=== PATIENT | female | born 1935 | race Caucasian/White ===

== ENCOUNTER 2020-04-06 17:00 | Inpatient (IN) ==
[2020-04-06] MEDS ORDERED: NS 0.9% 1000 ml BAG 1,000 ML IV ONE (17:20)
[2020-04-06] MEDS ORDERED: Pantoprazole VIAL 40 MG VIAL IV ONE (17:25)
[2020-04-06 17:47] LABS: Hematocrit 35 % (35-47); Hemoglobin 11.6 g/dL (12.0-16.0); Mean Corpuscular HGB Conc 33 g/dL (31-36); Mean Corpuscular Hemoglobin 31 pg (27-31); Mean Corpuscular Volume 93 fL (80-97); Mean Platelet Volume 11.2 fL (7.4-10.4); Platelet Count 131 10^3/uL (150-450); Red Blood Count 3.75 10^6 /uL (3.70-4.87); Red Cell Distribution Width 17 % (10-15); White Blood Count 11.1 10^3/uL (3.5-10.8)
[2020-04-06 17:56] LABS: Activated Partial Thrombo Time 38.1 seconds (26.0-38.0); INR 1.68 (0.82-1.09)
[2020-04-06 18:06] LABS: ALT 48 U/L (7-52); Albumin 3.3 g/dL (3.2-5.2); Albumin/Globulin Ratio 1.2 (1-3); Alkaline Phosphatase 217 U/L (34-104); BUN/Creatinine Ratio 37.8 (8-20); Blood Urea Nitrogen 48 mg/dL (6-24); C Reactive Protein 30.18 mg/L (<8.01); CO2 Carbon Dioxide 18 mmol/L (22-32); Calcium 9.9 mg/dL (8.6-10.3); Chloride 105 mmol/L (101-111); EGFR African American 48.3 (>60); EGFR Non-African American 39.9 (>60); Globulin 2.7 g/dL (2-4); Glucose 148 mg/dL (70-100); Lipase 34 U/L (11.0-82.0); Sodium 133 mmol/L (135-145)
[2020-04-06 18:12] LABS: ABS Lymphocytes 0.5 10^3/ul (1.0-4.8); ABS Neutrophils 9.6 10^3/ul (1.5-7.7); Anion Gap 10 mmol/L (2-11); Eosinophil % 0.1 %; Lymphocyte % 4.4 %; Troponin I 0.09 ng/mL (<0.03)
[2020-04-06] MEDS ORDERED: Pantoprazole 80 mg in NS BAG 80 MG/250 ML BAG IV ONE (18:24)
[2020-04-06 19:47] LABS: Potassium 5.5 mmol/L (3.5-5.0)
[2020-04-06] MEDS ORDERED: Octreotide Acetate 100 mcg/ml 50 MCG in NS 0.9% 50 ML 50 ML IV ONE (20:11)
[2020-04-06 20:41] LABS: Hematocrit 32 % (35-47); Hemoglobin 10.5 g/dL (12.0-16.0)
[2020-04-06] MEDS ORDERED: Octreotide Acetate 50 MCG in NS 0.9% 50 ML 50 ML IV ONE (21:00)
[2020-04-06] MEDS ORDERED: Octreotide Acetate 500 MCG in NS 0.9% 100 ml BAG 100 ML IV ONE (21:00)
[2020-04-06 21:02] LABS: Troponin I 0.09 ng/mL (<0.03)
[2020-04-06] MEDS ORDERED: NS 0.9% 1000 ml BAG 1,000 ML IV SCH (22:15)
[2020-04-07 02:29] LABS: Hematocrit 28 % (35-47); Hemoglobin 9.1 g/dL (12.0-16.0)
[2020-04-07] MEDS: Ondansetron 4 mg VIAL 2 MG/ML 2 ml VIAL IV PRN ×2 (03:58→08:29)
[2020-04-07] MEDS ORDERED: Morphine 2 MG/ML SYRINGE IV PRN (04:52)
[2020-04-07] MEDS ORDERED: Pantoprazole 80 mg in NS BAG 80 MG/250 ML BAG IV SCH (06:00)
[2020-04-07] MEDS ORDERED: Octreotide Acetate 500 MCG in NS 0.9% 100 ml BAG 100 ML IV SCH (06:00)
[2020-04-07 06:10] LABS: BUN/Creatinine Ratio 34.7 (8-20); Calcium 9.1 mg/dL (8.6-10.3); EGFR African American 39.8 (>60); EGFR Non-African American 32.9 (>60)
[2020-04-07 06:15] LABS: Potassium 6.3 mmol/L (3.5-5.0)
[2020-04-07 06:27] LABS: Hematocrit 27 % (35-47); Hemoglobin 8.6 g/dL (12.0-16.0); Mean Corpuscular HGB Conc 33 g/dL (31-36); Mean Corpuscular Hemoglobin 31 pg (27-31); Mean Corpuscular Volume 96 fL (80-97); Red Blood Count 2.77 10^6 /uL (3.70-4.87); Red Cell Distribution Width 17 % (10-15); White Blood Count 15.5 10^3/uL (3.5-10.8)
[2020-04-07] MEDS ORDERED: CALCIUM GLUCONATE 1GM/50ML NS 1 GM/50 ML BAG IV ONE (06:42)
[2020-04-07 08:34] LABS: ABS Lymphocytes 0.9 10^3/ul (1.0-4.8); ABS Monocytes 1.5 10^3/ul (0-0.8); ABS Neutrophils 13.1 10^3/ul (1.5-7.7); Large Platelets Present; Lymphocyte % 5.6 %; Mean Platelet Volume 10.9 fL (7.4-10.4); Platelet Count 92 10^3/uL (150-450)
[2020-04-07] MEDS ORDERED: Dextrose 50% Syringe 50 ml 25 GM/50 ML SYRINGE IV PUSH PRN (08:58)
[2020-04-07] MEDS ORDERED: Lidocaine PATCH 5% PATCH TRANSDERM SCH (09:00)
[2020-04-07] MEDS ORDERED: Lidocaine PATCH 5% PATCH ONE (09:01)
[2020-04-07] MEDS: Sodium Polystyrene ORAL.SUSP 15 GM/60 ML BTL PO ONE ×2 (09:16→09:22)
[2020-04-07] MEDS ORDERED: NS 0.9% 1000 ml BAG 1,000 ML IV ONE (09:26)
[2020-04-07 20:10] VITALS: BP 98/44
[2020-04-07] MEDS ORDERED: Lidocaine Patch REMOVE PATCH PATCH OFF SCH (21:00)
== END 2020-04-07 10:24 | disposition expired | DRG 377 ==
LOC: ED 17:00 → MEDTELE 22:14
PROVIDERS: ADMIT Hospitalist; ATTEND Internal Medicine